=== PATIENT | male | born 1990 | race Caucasian/White ===

== ENCOUNTER 2020-09-27 21:03 | Emergency (ER) | payer OTHER ==
[~2020-09-27] VITALS: Ht 172.7 cm; Wt 102.3 kg
--- NOTE | 2020-09-27 21:33 | PHYS DOC ---
Adult General Chief Complaint Chief Complaint: FINGER INJURY HPI HPI Patient is a 29-year-old male presents to the emergency department with a chief complaint of right index fingertip injury. 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 Patient states there is a cut to the fingertip. Patient denies numbness or tingling to the index finger tip. Patient reports his pain a 7 out of 10 pain. States he took 600 mg Motrin just prior to arrival. Patient reports his last tetanus immunization was greater than 5 years ago. Patient denies any other physical complaints or physical concerns. Patient denies any allergies to medications, states he only takes Adderall 30 mg twice daily for adult ADD. Patient denies any other physical complaints or physical concerns. (DOMO RAMÍREZ APRN) Review of Systems Review of Systems 14 body systems of review of systems have been reviewed. See HPI for pertinent positives and negative responses, otherwise all other systems are negative, nonpertinent or noncontributory. (DOMO RAMÍREZ APRN) Current Medications Current Medications Current Medications Medications (Trade) Dose Ordered Sig/Miguel Start Time Stop Time Status Last Admin Dose Admin Lidocaine HCl 20 ml 1X ONCE 09/27/20 21:30 09/27/20 21:31 UNV (DOMO RAMÍREZ APRN) Allergies Allergies Allergies Coded Allergies Type Severity Reaction Last Updated Verified No Known Drug Allergies 09/27/20 No (DOMO RAMÍREZ APRN) Physical Exam Physical Exam Constitutional: Well developed, well nourished, no acute distress, non-toxic appearance. 29-year-old male in no apparent distress. Patient has bandaged with wooden splint in place on right index finger. HENT: Normocephalic, atraumatic. Eyes: Conjunctiva normal, no discharge. Neck: Normal range of motion, no stridor. Cardiovascular: No cyanosis appreciated, distal cap refill less than 2 seconds. Lungs & Thorax: Patient is in no respiratory distress, no audible adventitious lung sounds appreciated. Abdomen: Nontender, no abnormalities noted. Skin: Warm, dry, no erythema, no rash. See extremity note for focused skin examination. Back: No tenderness, no deformities. Extremities: No tenderness, no cyanosis, no clubbing, ROM intact, no edema. Except for patient's right index fingertip. No deformity appreciated, there is a 1.0 cm laceration to the distal fingertip palmar surface without fingernail involvement, bleeding controlled with bandage. No loss of sensation distally, distal cap refill less than 2 seconds. Limited passive range of motion of index finger phalanx joints related to pain. No injury appreciated of the remaining thumb and fingers or hand of the right, full range of motion of these digits, no swelling, no deformities, no loss of sensation, distal cap refill less than 2 seconds. Neurologic: Alert and oriented X 3, normal motor function, normal sensory function, no focal deficits noted. Psychologic: Affect normal, judgement normal, mood normal. (DOMO RAMÍREZ APRN) EKG EKG [] (DOMO RAMÍREZ APRN) Radiology/Procedures Radiology/Procedures [] (DOMO RAMÍREZ APRN) Heart Score C/O Chest Pain: No Risk Factors: Risk Factors: DM, Current or recent (<one month) smoker, HTN, HLP, family history of CAD, obesity. Risk Scores: Risk Factors: DM, Current or recent (<one month) smoker, HTN, HLP, family history of CAD, obesity. (DOMO RAMÍREZ APRN) Course & Med Decision Making Course & Med Decision Making Pertinent Labs and Imaging studies reviewed. (See chart for details) 29-year-old male, vital signs reviewed, presents emergency department with chief complaint of smashing his right index finger in a metal door while he was at work. Physical examination consistent with patient's description of events, will order x-ray of right index finger to rule out fracture, patient's immunization for tetanus will be brought up-to-date today in the emergency department with Adacel Tdap. Wet read of x-ray performed by myself and ED attending physician Dr. Fontaine showed nondisplaced distal phalanx tuft fracture of the index finger. Laceration of distal tip index finger palmar aspect repaired, see laceration repair procedure note. Discussed x-ray findings with patient, patient was amenable to repair of laceration, discussed with patient this is an open fracture that requires attention by an orthopedic surgeon this week, discussed with patient reason for prophylactic treatment of IV antibiotics in the emergency department and oral antibiotic prescription use after discharge. Discussed with patient splint placement and splint care, laceration care, sutures requiring removal in 7 to 10 days, patient gave verbal understanding and was amendable to ED planning. Discussed with patient this was a work-related injury, strict follow-up Tuesday with HR department and work comp physician as indicated by his injury forms gi isauro to him by his supervising officer. Patient gave verbal understanding of discharge home instructions, follow-up with orthopedic surgeon/work comp physician, return to ER precautions and concerns, patient stated he was grateful, stated that he was comfortable with care at home and was ready to be discharged, patient was discharged from the emergency department without incident, injured right index finger remains neurovascular intact, patient was hemodynamically stable at dispo time. (DOMO RAMÍREZ APRN) Dragon Disclaimer Dragon Disclaimer This electronic medical record was generated, in whole or in part, using a voice recognition dictation system. (DOMO RAMÍREZ APRN) Laceration Repair Lac Repair Indication: Laceration right pointer finger distal phalanx palmar aspect. Time: 2200 Confirmed: Patient, procedure, side, and site correct. Consent: Patient, has given verbal consent. Description/repair Procedure: The patient was placed in the appropriate position and anesthesia around the laceration was achieved with 4 cc 2% lidocaine without epinephrine digital block procedure. The area was then copious amounts of pressurized normal saline. The laceration was explored for foreign bodies, there were no foreign bodies appreciated. The laceration was repaired with 4 each interrupted sutures using 5-0 nylon. The wound area was then dressed with bacitracin and Band-Aid, then splinted with aluminum finger splint related to distal tuft fracture by ED nursing staff. Complexity: Single layer. Post procedure exam: Circulation, motor, sensory examination intact, bleeding controlled. Total repaired wound length: 1 cm. Other Items: The patient remained neurovascular intact after dressing and splint placement, no bleeding appreciated after procedure. The patient tolerated the procedure well. Complications: This is an open fracture laceration, loosely repaired with suture. Performed by: Domo Hernandez, FINISHER [employer] Supervision: Dr. Fontaine was present for the critical aspects of the procedure including closure and post procedure exam. Total time: 10 minutes. (DOMO RAMÍREZ APRN) Departure Departure: Impression: Primary Impression: Fracture, finger, distal phalanx, open Additional Impressions: Need for Tdap vaccination Laceration of finger of right hand Disposition: 01 HOME / SELF CARE / HOMELESS Condition: GOOD Referrals: PCP,NO (PCP) Patient Instructions: Finger Fracture Additional Instructions: You were seen today in the emergency department for a finger injury of your right index fingertip after you reported a large metal door smashed it into the door jam. An x-ray was performed, you have a nondisplaced distal phalanx open tuft fracture. The laceration was repaired with sutures that require removal in 7 to 10 days. Because of the nature of this injury, you were given 2 g of antibiotic called [facility] through an IV. I am sending you home with a prescription for pain medication and oral antibiotics that you will take as directed until completed. It is imperative that you follow-up with an orthopedic surgeon this week. You may use the recommendation of your work comp physician or you may consider using the [employer] group located at [address] [place] [address], [facility]. Their phone number is [phone], please call Tuesday for an appointment this week. Please let them know you have a nondisplaced open finger fracture of the right index distal phalanx. You have been placed in a splint, please do not remove the splint until reexamined by an orthopedic surgeon this week. Please return to the emergency department immediately for worsening symptoms or other concerns. You had indicated your tetanus immunization was greater than 5 years ago, your tetanus immunization was brought up to date today in the emergency department with a medication called Adacel Tdap. Please record this in your records. Please clean the laceration site daily with soap and water and apply antibiotic ointment. EMERGENCY DEPARTMENT GENERAL DISCHARGE INSTRUCTIONS Thank you for coming to [facility] (ED) today and trusting us with you care. We trust that you had a positivie experience in our Emergency Department. If you wish to speak to the department management, you may call the director at [phone]. YOUR FOLLOW UP INSTRUCTIONS ARE FOLLOWS: 1. Do you have a private Doctor? If you do not have a private doctor, please ask for a resource list of physicians or clinics that may be able to assist you with follow up care. 2. The Emergency Physician has interpreted your x-rays. The X-Ray specialist w ill also review them. If there is a change in the findings, you will be notified in 48 hours when at all possible. 3. A lab test or culture has been done, your results will be reviewed and you will be notified if you need a change in treatment. ADDITIONAL INSTRUCTIONS AND INFORMATION: 1. Your care today has been supervised by a physician who is specially trained in emergency care. Many problems require more than one evaluation for a complete diagnosis and treatment. We recommend that you schedule your follow up appointment as recommended to ensure complete treatment of you illness or injury. If you are unable to obtain follow up care and continue to have a problem, or if your condition worsens, we recommend that you return to the ED. 2. We are not able to safely determine your condition over the phone nor are we able to give sound medical advice over the phone. For these safety reasons, if you call for medical advice we will ask you to come to the ED for further evaluation. 3. If you have any questions regarding these discharge instructions please call the ED at [phone]. SAFETY INFORMATION: In the interest of safety, wellness, and injury prevention; we encourage you to wear your sealbelt, if you smoke; quite smoking, and we encourage family to use a protective helmet for bicycling and other sporting events that present an increased risk for head injury. IF YOUR SYMPTOMS WORSEN OR NEW SYMPTOMS DEVELOP, OR YOU HAVE CONCERNS ABOUT YOUR CONDITION; OR IF YOUR CONDITION WORSENS WHILE YOU ARE WAITING FOR YOUR FOLLOW UP APPOINTMENT; EITHER CONTACT YOUR PRIMARY CARE DOCTOR, THE PHYSICIAN WHOSE NAME AND NUMBER YOU WERE GIVEN, OR RETURN TO THE ED IMMEDIATELY. Scripts Cephalexin (CEPHALEXIN) 500 Mg Capsule 1 CAP PO QID for finger injury for 10 Days, #40 CAP 0 Refills Prov: DOMO RAMÍREZ APRN 09/27/20 Ibuprofen (IBUPROFEN) 600 Mg Tablet 600 MG PO Q6-8HRS PRN for PAIN, #20 TAB 0 Refills Prov: DOMO RAMÍREZ APRN 09/27/20 Hydrocodone Bit/Acetaminophen (HYDROCODONE-APAP 5-325 ) 1 Each Tablet 1 TAB PO PRN Q6HRS PRN for PAIN, #14 TAB 0 Refills Prov: DOMO RAMÍREZ APRN 09/27/20 Attending Signature Attending Signature I have participated in the care of this patient and I have reviewed and agree with all pertinent clinical information above including history, exam, and recommendations. (JASON FONTAINE MD) Problem Qualifiers Primary Impression: Fracture, finger, distal phalanx, open Encounter type: initial encounter Finger: index finger Fracture alignment: nondisplaced Laterality: right Qualified Codes: S62.660B - Nondisplaced fracture of distal phalanx of right index finger, initial encounter for open fracture Additional Impressions: Laceration of finger of right hand Encounter type: initial encounter Finger: index finger Damage to nail status: without damage Foreign body presence: without foreign body Qualified Codes: S61.210A - Laceration without foreign body of right index finger without damage to nail, initial encounter DOMO RAMÍREZ APRN Sep 27, 2020 21:33 JASON FONTAINE MD Sep 29, 2020 05:13
[2020-09-27] MEDS: BACITRACIN ZINC TOPICAL OINT PACKET. TP ONE (21:56)
[2020-09-27] MEDS ORDERED: IV DEXTROSE 5% 50 ML ONE (21:57)
[2020-09-27] MEDS ORDERED: ceFAZolin SODIUM 1 GM VIAL ONE (21:57)
[2020-09-27] MEDS ORDERED: IBUP600T16 PO (21:58)
[2020-09-27] MEDS ORDERED: CEPH500C PO (21:58)
[2020-09-27] MEDS ORDERED: HYDR-2155 PO (21:58)
[2020-09-27] MEDS: LIDOCAINE 2% 20 ML VIAL. IJ ONE (22:00)
[2020-09-27] MEDS: HYDROcodone/APAP 7.5/325MG 1 TAB TABLET PO ONE (22:01)
[2020-09-27] MEDS: DIPH,PERTUSS(ACELL),TET VAC/PF 0.5 ML SYRINGE. VAX IM ONE (22:07)
[2020-09-27] MEDS: ceFAZolin SODIUM 2 GM in IV DEXTROSE 5% 50 ML IV ONE (22:10)
[2020-09-27 22:32] VITALS: BP 145/98
--- NOTE | 2020-09-28 01:23 | RAD ---
Right index finger 3 views. HISTORY: Crush injury 3 views were taken of the right index finger. There is soft tissue injury. There is a nondisplaced fr acture at the tuft of the distal phalanx. No other fracture or osseous abnormality is noted. IMPRESSION: 1. Nondisplaced fracture distal phalanx right second finger. Electronically signed by: Godwin Ornelas MD (09/28/2020 1:20 AM) [facility]
== END 2020-09-27 22:47 | disposition home or self-care (01) ==
LOC: ER 21:03
DX: S62.660B Nondisplaced fracture of distal phalanx of right index finger, initial encounter for open fracture (principal); Z23 Encounter for immunization; W23.0XXA Caught, crushed, jammed, or pinched between moving objects, initial encounter; Y93.89 Activity, other specified; Y92.89 Other specified places as the place of occurrence of the external cause; Y99.8 Other external cause status
CPT/HCPCS: 12001; 29130; 73140; 90471; 90715; 96365; 99284; J0690; J2001